=== PATIENT | male | born 1935 | race Caucasian/White ===

== ENCOUNTER 2016-07-28 21:06 | Inpatient (IN) | payer OTHER ==
[~2016-07-28] VITALS: Ht 162.6 cm; Wt 62.5 kg
[2016-07-28] MEDS ORDERED: ASPIRIN 81 MG TABLET CHEW PO ONE (21:30)
[2016-07-28] MEDS ORDERED: ASPIRIN 81 MG TABLET CHEW ONE (21:43)
[2016-07-28 22:08] LABS: ASPARTATE AMINO TRANSFERASE 25 U/L (15-37); BLOOD UREA NITROGEN 22 mg/dL (7-18)
[2016-07-28] MEDS ORDERED: IPRA15SP NAS (22:13)
[2016-07-28] MEDS ORDERED: OXYC-223 PO (22:19)
[2016-07-28] MEDS ORDERED: TIOT18CA INH (22:19)
[2016-07-28] MEDS ORDERED: POTA20TA89 PO (22:19)
[2016-07-28] MEDS ORDERED: ALBU8.5H3 INH (22:19)
[2016-07-28] MEDS ORDERED: FURO20TA3 PO (22:19)
[2016-07-28] MEDS ORDERED: TAMS0.4C2 PO (22:19)
[2016-07-28] MEDS ORDERED: FERR324T5 PO (22:19)
[2016-07-28] MEDS ORDERED: TRAZ50TA18 PO (22:19)
[2016-07-28] MEDS ORDERED: ASPI-515 PO (22:19)
[2016-07-28] MEDS ORDERED: ASCO500C2 PO (22:19)
[2016-07-28 22:24] LABS: IS PT STATUS REG ER OR PRE ER? YES
[2016-07-28 22:55] LABS: PATH.CAST-FLAG NOT PRESENT; SPERM-FLAG NOT PRESENT; SRC-FLAG NOT PRESENT; XTAL-FLAG NOT PRESENT; YLC-FLAG NOT PRESENT
[2016-07-29] MEDS ORDERED: ONDANSETRON 2MG/ML, 2ML IVPush PRN ×2 (00:30→01:00)
[2016-07-29] MEDS: HEPARIN 5,000 UNITS/ML, 1ML SQ SCH ×3 (01:00→17:35)
[2016-07-29] MEDS ORDERED: NITROGLYCERIN 0.4 MG BOTTLE (25 TABS) SL PRN (01:00)
[2016-07-29] MEDS ORDERED: POLYETHYLENE GLYCOL 17 GM PACKET PO PRN (01:00)
[2016-07-29] MEDS ORDERED: BISACODYL 10 MG SUPP PR PRN (01:00)
[2016-07-29] MEDS ORDERED: GUAIFENESIN/DM 200-20MG, 10ML UDC PO PRN (01:00)
[2016-07-29] MEDS ORDERED: MORPHINE SULFATE 4 MG/ML, 1ML ONE (02:59)
[2016-07-29 03:48] VITALS: BP 135/73
[2016-07-29 04:44] LABS: ASPARTATE AMINO TRANSFERASE 22 U/L (15-37); BLOOD UREA NITROGEN 19 mg/dL (7-18)
[2016-07-29 04:45] LABS: IS PT STATUS REG ER OR PRE ER? NO
[2016-07-29 06:31] VITALS: BP 115/63
[2016-07-29] MEDS: OXYcodone/APAP 7.5/325MG TABLET PO SCH (08:10)
[2016-07-29] MEDS: SENNA/DOCUSATE TABLET PO SCH (08:11)
[2016-07-29] MEDS: ASCORBIC ACID 500 MG TABLET PO SCH (08:11)
[2016-07-29] MEDS: POTASSIUM CHLORIDE 20 MEQ TAB.ER.PRT PO SCH (08:11)
[2016-07-29] MEDS: SODIUM CHLORIDE FLUSH 3ML SYRINGE IVF SCH ×2 (08:11→20:19)
[2016-07-29] MEDS: ASPIRIN 81 MG TABLET EC PO SCH (08:11)
[2016-07-29] MEDS: IPRATROPIUM BROMIDE NAS SCH ×2 (08:11→20:19)
[2016-07-29] MEDS: TAMSULOSIN 0.4 MG CAP.ER.24H PO SCH (08:11)
[2016-07-29] MEDS: TEMPLATE NON-FORMULARY MED. (Albuterol Sulfate (Proair Hfa) 1 PUFF) INH SCH ×2 (08:11→20:19)
[2016-07-29] MEDS: FUROSEMIDE 20 MG TABLET PO SCH (08:11)
[2016-07-29] MEDS ORDERED: ALBUTEROL SULFATE 2.5 MG/3 ML NPPB SCH (09:00)
[2016-07-29] MEDS ORDERED: IPRATROPIUM 0.5 MG/2.5 ML INHA HHN SCH (09:00)
[2016-07-29] MEDS: ALBUTEROL/IPRATROPIUM 2.5MG/0.5MG, 3 ML NPPB SCH ×2 (09:00→20:30)
[2016-07-29] MEDS ORDERED: FERROUS SULFATE 325 MG TABLET PO SCH (09:00)
[2016-07-29 10:24] LABS: IS PT STATUS REG ER OR PRE ER? NO
[2016-07-29] MEDS: GUAIFENESIN ER 600 MG TABLET PO SCH ×2 (11:46→20:19)
[2016-07-29 13:10] VITALS: BP 109/57
[2016-07-29] MEDS: ACETAMINOPHEN 325 MG TABLET PO PRN (14:19)
[2016-07-29] MEDS: FERROUS SULFATE 325 MG TABLET PO SCH (17:36)
[2016-07-29 20:00] VITALS: BP 95/57
[2016-07-29] MEDS: TRAZODONE 50MG TABLET PO SCH (20:20)
[2016-07-30] MEDS: HEPARIN 5,000 UNITS/ML, 1ML SQ SCH ×2 (00:48→09:43)
[2016-07-30 00:53] VITALS: BP 103/52
[2016-07-30 06:29] LABS: BLOOD UREA NITROGEN 23 mg/dL (7-18)
[2016-07-30 07:30] VITALS: BP 122/63
[2016-07-30] MEDS: FUROSEMIDE 20 MG TABLET PO SCH (07:57)
[2016-07-30] MEDS: GUAIFENESIN ER 600 MG TABLET PO SCH ×2 (07:57→20:43)
[2016-07-30] MEDS: ASCORBIC ACID 500 MG TABLET PO SCH (07:57)
[2016-07-30] MEDS: SENNA/DOCUSATE TABLET PO SCH (07:57)
[2016-07-30] MEDS: POTASSIUM CHLORIDE 20 MEQ TAB.ER.PRT PO SCH (07:57)
[2016-07-30] MEDS: TAMSULOSIN 0.4 MG CAP.ER.24H PO SCH (07:57)
[2016-07-30] MEDS: ASPIRIN 81 MG TABLET EC PO SCH (07:58)
[2016-07-30] MEDS: TEMPLATE NON-FORMULARY MED. (Albuterol Sulfate (Proair Hfa) 1 PUFF) INH SCH ×2 (07:58→21:00)
[2016-07-30] MEDS: TRAZODONE 50MG TABLET PO SCH (07:58)
[2016-07-30] MEDS: FERROUS SULFATE 325 MG TABLET PO SCH ×2 (07:58→18:21)
[2016-07-30] MEDS: OXYcodone/APAP 7.5/325MG TABLET PO SCH (07:59)
[2016-07-30] MEDS: IPRATROPIUM BROMIDE NAS SCH ×2 (07:59→21:00)
[2016-07-30] MEDS: SODIUM CHLORIDE FLUSH 3ML SYRINGE IVF SCH ×2 (07:59→21:00)
[2016-07-30 08:49] VITALS: BP 94/52
[2016-07-30] MEDS: ALBUTEROL/IPRATROPIUM 2.5MG/0.5MG, 3 ML NPPB SCH ×2 (09:00→22:15)
[2016-07-30] MEDS ORDERED: ENOXAPARIN 40 MG/0.4 ML SQ SCH (12:30)
[2016-07-30 14:13] VITALS: BP 92/43
[2016-07-30] MEDS: DOXYCYCLINE 100MG TABLET PO SCH ×2 (14:35→20:43)
[2016-07-30 18:41] VITALS: BP 136/66
[2016-07-31 01:27] VITALS: BP 122/82
[2016-07-31] MEDS: ALBUTEROL/IPRATROPIUM 2.5MG/0.5MG, 3 ML NPPB SCH ×2 (07:21→18:53)
[2016-07-31 07:55] VITALS: BP 108/65
[2016-07-31] MEDS: TEMPLATE NON-FORMULARY MED. (Albuterol Sulfate (Proair Hfa) 1 PUFF) INH SCH ×2 (09:00→21:00)
[2016-07-31] MEDS: SODIUM CHLORIDE FLUSH 3ML SYRINGE IVF SCH ×2 (09:00→21:00)
[2016-07-31] MEDS: IPRATROPIUM BROMIDE NAS SCH ×2 (09:00→21:00)
[2016-07-31] MEDS: GUAIFENESIN ER 600 MG TABLET PO SCH ×2 (10:24→21:57)
[2016-07-31] MEDS: OXYcodone/APAP 7.5/325MG TABLET PO SCH (10:24)
[2016-07-31] MEDS: ASPIRIN 81 MG TABLET EC PO SCH (10:24)
[2016-07-31] MEDS: POTASSIUM CHLORIDE 20 MEQ TAB.ER.PRT PO SCH (10:24)
[2016-07-31] MEDS: TAMSULOSIN 0.4 MG CAP.ER.24H PO SCH (10:24)
[2016-07-31] MEDS: FUROSEMIDE 20 MG TABLET PO SCH (10:24)
[2016-07-31] MEDS: FERROUS SULFATE 325 MG TABLET PO SCH ×2 (10:24→17:24)
[2016-07-31] MEDS: TRAZODONE 50MG TABLET PO SCH (10:24)
[2016-07-31] MEDS: ASCORBIC ACID 500 MG TABLET PO SCH (10:25)
[2016-07-31] MEDS: DOXYCYCLINE 100MG TABLET PO SCH ×2 (10:25→21:57)
[2016-07-31] MEDS: SENNA/DOCUSATE TABLET PO SCH (10:25)
[2016-07-31 14:21] VITALS: BP 104/64
[2016-07-31 18:31] VITALS: BP 130/70
[2016-07-31] MEDS: ACETAMINOPHEN 325 MG TABLET PO PRN (19:59)
[2016-08-01 00:46] VITALS: BP 102/65
[2016-08-01 06:32] VITALS: BP 130/73
[2016-08-01] MEDS: ASPIRIN 81 MG TABLET EC PO SCH (08:43)
[2016-08-01] MEDS: OXYcodone/APAP 7.5/325MG TABLET PO SCH (08:43)
[2016-08-01] MEDS: POTASSIUM CHLORIDE 20 MEQ TAB.ER.PRT PO SCH (08:43)
[2016-08-01] MEDS: TAMSULOSIN 0.4 MG CAP.ER.24H PO SCH (08:43)
[2016-08-01] MEDS: TRAZODONE 50MG TABLET PO SCH (08:43)
[2016-08-01] MEDS: GUAIFENESIN ER 600 MG TABLET PO SCH ×2 (08:43→21:52)
[2016-08-01] MEDS: FERROUS SULFATE 325 MG TABLET PO SCH ×2 (08:43→18:07)
[2016-08-01] MEDS: FUROSEMIDE 20 MG TABLET PO SCH (08:43)
[2016-08-01] MEDS: ASCORBIC ACID 500 MG TABLET PO SCH (08:44)
[2016-08-01] MEDS: DOXYCYCLINE 100MG TABLET PO SCH ×2 (08:44→21:52)
[2016-08-01] MEDS: SENNA/DOCUSATE TABLET PO SCH (08:44)
[2016-08-01] MEDS: SODIUM CHLORIDE FLUSH 3ML SYRINGE IVF SCH ×2 (08:47→21:00)
[2016-08-01] MEDS: TEMPLATE NON-FORMULARY MED. (Albuterol Sulfate (Proair Hfa) 1 PUFF) INH SCH ×2 (08:47→21:00)
[2016-08-01] MEDS: IPRATROPIUM BROMIDE NAS SCH ×2 (08:48→21:00)
[2016-08-01] MEDS: ALBUTEROL/IPRATROPIUM 2.5MG/0.5MG, 3 ML NPPB SCH ×2 (09:23→19:10)
[2016-08-01 12:02] VITALS: BP 97/63
[2016-08-01] MEDS: ENOXAPARIN 40 MG/0.4 ML SQ SCH (12:42)
[2016-08-01 18:31] VITALS: BP 104/65
[2016-08-01] MEDS: ACETAMINOPHEN 325 MG TABLET PO PRN (22:01)
[2016-08-02 01:54] VITALS: BP 111/57
[2016-08-02 06:40] VITALS: BP 120/71
[2016-08-02] MEDS: IPRATROPIUM BROMIDE NAS SCH ×2 (09:00→21:00)
[2016-08-02] MEDS: ALBUTEROL/IPRATROPIUM 2.5MG/0.5MG, 3 ML NPPB SCH ×2 (09:00→20:55)
[2016-08-02] MEDS: TEMPLATE NON-FORMULARY MED. (Albuterol Sulfate (Proair Hfa) 1 PUFF) INH SCH ×2 (09:00→21:00)
[2016-08-02] MEDS: SODIUM CHLORIDE FLUSH 3ML SYRINGE IVF SCH ×2 (09:00→21:00)
[2016-08-02] MEDS: TRAZODONE 50MG TABLET PO SCH (10:04)
[2016-08-02] MEDS: ASPIRIN 81 MG TABLET EC PO SCH (10:04)
[2016-08-02] MEDS: FERROUS SULFATE 325 MG TABLET PO SCH ×2 (10:04→17:56)
[2016-08-02] MEDS: OXYcodone/APAP 7.5/325MG TABLET PO SCH (10:05)
[2016-08-02] MEDS: DOXYCYCLINE 100MG TABLET PO SCH ×2 (10:05→21:15)
[2016-08-02] MEDS: POTASSIUM CHLORIDE 20 MEQ TAB.ER.PRT PO SCH (10:05)
[2016-08-02] MEDS: GUAIFENESIN ER 600 MG TABLET PO SCH (10:05)
[2016-08-02] MEDS: FUROSEMIDE 20 MG TABLET PO SCH (10:05)
[2016-08-02] MEDS: TAMSULOSIN 0.4 MG CAP.ER.24H PO SCH (10:05)
[2016-08-02] MEDS: ASCORBIC ACID 500 MG TABLET PO SCH (10:05)
[2016-08-02] MEDS: SENNA/DOCUSATE TABLET PO SCH (10:05)
[2016-08-02] MEDS: ENOXAPARIN 40 MG/0.4 ML SQ SCH (11:21)
[2016-08-02 13:30] VITALS: BP 100/61
[2016-08-02 18:59] VITALS: BP 130/73
[2016-08-03 00:27] VITALS: BP 98/55
[2016-08-03] MEDS ORDERED: SENNA/DOCUSATE TABLET PO SCH (09:00)
[2016-08-03] MEDS: IPRATROPIUM BROMIDE NAS SCH (09:00)
[2016-08-03] MEDS: SODIUM CHLORIDE FLUSH 3ML SYRINGE IVF SCH (09:00)
[2016-08-03] MEDS: TEMPLATE NON-FORMULARY MED. (Albuterol Sulfate (Proair Hfa) 1 PUFF) INH SCH (09:00)
[2016-08-03 09:22] VITALS: BP 120/66
[2016-08-03] MEDS: ALBUTEROL/IPRATROPIUM 2.5MG/0.5MG, 3 ML NPPB SCH ×2 (09:25→21:00)
[2016-08-03] MEDS: ASCORBIC ACID 500 MG TABLET PO SCH (09:42)
[2016-08-03] MEDS: ASPIRIN 81 MG TABLET EC PO SCH (09:43)
[2016-08-03] MEDS: DOXYCYCLINE 100MG TABLET PO SCH ×2 (09:43→20:32)
[2016-08-03] MEDS: POTASSIUM CHLORIDE 20 MEQ TAB.ER.PRT PO SCH (09:43)
[2016-08-03] MEDS: TAMSULOSIN 0.4 MG CAP.ER.24H PO SCH (09:43)
[2016-08-03] MEDS: FUROSEMIDE 20 MG TABLET PO SCH (09:43)
[2016-08-03] MEDS: TRAZODONE 50MG TABLET PO SCH (09:44)
[2016-08-03] MEDS: FERROUS SULFATE 325 MG TABLET PO SCH ×2 (10:00→16:01)
[2016-08-03] MEDS: OXYcodone/APAP 7.5/325MG TABLET PO SCH (10:00)
[2016-08-03] MEDS ORDERED: ENOXAPARIN 40 MG/0.4 ML SQ SCH (11:00)
[2016-08-03 14:53] VITALS: BP 100/65
[2016-08-03] MEDS ORDERED: DOXY100T PO (15:51)
[2016-08-03] MEDS ORDERED: FERR325T20 PO (15:51)
[2016-08-03 16:20] VITALS: BP 105/64
== END 2016-08-03 21:25 | disposition home or self-care (01) | DRG 191 ==
LOC: ED 23:59 → EDIP 07-29 00:06 → 5SO 07-29 03:18 → 3NE 07-30 18:37
PROVIDERS: ADMIT Internal Medicine; ATTEND Internal Medicine
DX: J44.0 Chronic obstructive pulmonary disease with (acute) lower respiratory infection (principal); E87.1 Hypo-osmolality and hyponatremia; E44.0 Moderate protein-calorie malnutrition; I45.2 Bifascicular block; J20.9 Acute bronchitis, unspecified; J98.8 Other specified respiratory disorders; J44.1 Chronic obstructive pulmonary disease with (acute) exacerbation; D63.8 Anemia in other chronic diseases classified elsewhere; I25.10 Atherosclerotic heart disease of native coronary artery without angina pectoris; D50.9 Iron deficiency anemia, unspecified; I10 Essential (primary) hypertension; I45.10 Unspecified right bundle-branch block; M06.9 Rheumatoid arthritis, unspecified; N40.0 Benign prostatic hyperplasia without lower urinary tract symptoms; R32 Unspecified urinary incontinence; Z79.82 Long term (current) use of aspirin; Z82.49 Family history of ischemic heart disease and other diseases of the circulatory system; Z87.891 Personal history of nicotine dependence; Z95.5 Presence of coronary angioplasty implant and graft; Z68.27 Body mass index [BMI] 27.0-27.9, adult; Z90.89 Acquired absence of other organs; J32.9 Chronic sinusitis, unspecified
CPT/HCPCS: 36415; 70450; 71010; 80048; 80053; 81001; 81003; 82728; 83540; 83550; 83880; 84145; 84484; 85025; 87070; 87086; 87205; 93005; 93306; 93970; 94640; 99285; J1644; J1650; J7620

== ENCOUNTER 2016-09-23 16:27 | Inpatient (IN) | payer OTHER ==
[~2016-09-23] VITALS: Ht 175.3 cm; Wt 42.5 kg
[~2016-09-23 16:27] MED LIST: ALBU8.5H8 INH; ASCO500C2 PO; ASPI-515 PO; DOXY100T PO; FERR324T5 PO; FERR325T18 PO; FURO20TA3 PO; IPRA15SP NAS; OXYC-306 PO; POTA20TA89 PO; TAMS0.4C2 PO; TIOT18CA INH; TRAZ50TA18 PO
[2016-09-23] MEDS ORDERED: SODIUM CHLORIDE 0.9% 1,000 ML IV ONE (17:02)
[2016-09-23] MEDS ORDERED: MORPHINE SULFATE 4 MG/ML, 1ML ONE (17:08)
[2016-09-23] MEDS ORDERED: SODIUM CHLORIDE FLUSH 10ML SYR IVF ONE (17:30)
[2016-09-23] MEDS ORDERED: MORPHINE SULFATE 4 MG/ML, 1ML IVPush PRN (17:30)
[2016-09-23 18:01] LABS: HEMATOCRIT 29.1 % (39.2-51.8); HEMOGLOBIN 9.3 g/dL (13.7-18.0); WHITE BLOOD COUNT 8.6 x10^3/uL (3.4-10)
[2016-09-23 18:12] LABS: BLOOD UREA NITROGEN 25 mg/dL (7-18)
[2016-09-23] MEDS ORDERED: ONDANSETRON 2MG/ML, 2ML IVPush PRN ×2 (18:30→21:00)
[2016-09-23] MEDS ORDERED: ACETAMINOPHEN 325 MG TABLET PO PRN ×2 (18:30→21:00)
[2016-09-23] MEDS ORDERED: NS + 20MEQ KCL 1,000 ML IV SCH (18:30)
[2016-09-23] MEDS ORDERED: DOCUSATE 100 MG CAPSULE PO PRN (18:30)
[2016-09-23] MEDS ORDERED: morphine SULFATE 10 MG/ML, 1ML IVPush PRN (18:30)
[2016-09-23] MEDS ORDERED: POLYETHYLENE GLYCOL 17 GM PACKET PO PRN (18:30)
[2016-09-23] MEDS ORDERED: FENTANYL PF 100 MCG/2ML ONE ×3 (19:55→21:09)
[2016-09-23] MEDS ORDERED: MIDAZOLAM 1 MG/ML, 2ML ONE (19:56)
[2016-09-23] MEDS ORDERED: DEXAMETHASONE 4 MG/ML, 1ML ONE (20:08)
[2016-09-23] MEDS ORDERED: SUCCINYLCHOLINE 20 MG/ML, 10ML ONE (20:08)
[2016-09-23] MEDS ORDERED: PROPOFOL 10 MG/ML, 20ML ONE (20:08)
[2016-09-23] MEDS ORDERED: ONDANSETRON 2MG/ML, 2ML ONE (20:08)
[2016-09-23] MEDS ORDERED: ROCURONIUM 10 MG/ML ONE (20:08)
[2016-09-23] MEDS ORDERED: GLYCOPYRROLATE 0.2MG/1ML ONE (20:08)
[2016-09-23] MEDS ORDERED: CEFAZOLIN 1,000 MG ONE (20:08)
[2016-09-23] MEDS ORDERED: NEOSTIGMINE 1 MG/ML, 10ML ONE (20:08)
[2016-09-23] MEDS ORDERED: HYDROmorphone 1 MG/ML, 1ML IV PRN (21:00)
[2016-09-23] MEDS ORDERED: EPHEDRINE 50 MG/ML, 1ML IVPush PRN (21:00)
[2016-09-23] MEDS ORDERED: hydrALAzine 20 MG/ML, 1ML IV PRN (21:00)
[2016-09-23] MEDS ORDERED: LABETALOL 5MG/ML, 20ML IV PRN (21:00)
[2016-09-23] MEDS ORDERED: PROMETHAZINE 25 MG/ML, 1ML IV PRN (21:00)
[2016-09-23] MEDS ORDERED: OXYcodone 5 MG/5 ML ORAL.SOL UDC PO PRN (21:00)
[2016-09-23] MEDS ORDERED: HYDROcodone/APAP 7.5-325MG/15ML UDC PO PRN (21:00)
[2016-09-23] MEDS ORDERED: METOPROLOL 1 MG/ML, 5ML IV PRN (21:00)
[2016-09-23] MEDS ORDERED: ALBUTEROL/IPRATROPIUM 2.5MG/0.5MG, 3 ML NPPB PRN (21:00)
[2016-09-23] MEDS ORDERED: ALBUTEROL SULFATE 2.5 MG/3 ML NPPB PRN (21:00)
[2016-09-23] MEDS ORDERED: FENTANYL PF 100 MCG/2ML IV PRN (21:00)
[2016-09-23] MEDS ORDERED: ACETAMINOPHEN 650 MG/20.3 ML UDC ONE (21:09)
[2016-09-23] MEDS ORDERED: OXYcodone 5 MG/5 ML ORAL.SOL UDC ONE (21:10)
[2016-09-23] MEDS ORDERED: ENOXAPARIN 40 MG/0.4 ML SQ SCH (21:30)
[2016-09-24 01:44] VITALS: BP 129/79
[2016-09-24] MEDS ORDERED: IPRATROPIUM 0.5 MG/2.5 ML INHA NPPB SCH (03:30)
[2016-09-24 03:32] VITALS: BP 111/66
[2016-09-24] MEDS: CEFAZOLIN PMX 1GM/50ML 50 ML IVPB SCH ×2 (04:20→11:27)
[2016-09-24 05:38] LABS: HEMATOCRIT 25.9 % (39.2-51.8); HEMOGLOBIN 8.3 g/dL (13.7-18.0); WHITE BLOOD COUNT 8.1 x10^3/uL (3.4-10)
[2016-09-24] MEDS ORDERED: ENOXAPARIN 40 MG/0.4 ML SQ SCH (06:00)
[2016-09-24 06:08] LABS: BLOOD UREA NITROGEN 21 mg/dL (7-18)
[2016-09-24 08:30] VITALS: BP 115/71
[2016-09-24] MEDS: FERROUS SULFATE 325 MG TABLET PO SCH ×2 (08:32→16:41)
[2016-09-24] MEDS: SENNA/DOCUSATE TABLET PO SCH (08:32)
[2016-09-24] MEDS: TAMSULOSIN 0.4 MG CAP.ER.24H PO SCH (08:32)
[2016-09-24] MEDS: POTASSIUM CHLORIDE 20 MEQ TAB.ER.PRT PO SCH (08:32)
[2016-09-24] MEDS: HYDROcodone/APAP 5/325 TABLET PO PRN ×2 (08:34→14:25)
[2016-09-24] MEDS: TEMPLATE NON-FORMULARY MED. (Albuterol Sulfate (Proair Hfa) 1 PUFF) INH SCH ×2 (09:00)
[2016-09-24] MEDS: IPRATROPIUM BROMIDE NAS SCH ×2 (09:00)
[2016-09-24] MEDS ORDERED: IPRATROPIUM 0.5 MG/2.5 ML INHA HHN SCH (09:00)
[2016-09-24] MEDS: ENOXAPARIN 30 MG/0.3 ML SQ SCH ×2 (11:27→11:30)
[2016-09-24 14:04] VITALS: BP 114/59
[2016-09-24] MEDS: IPRATROPIUM 0.5 MG/2.5 ML INHA NPPB SCH ×2 (15:52→21:30)
[2016-09-24 19:04] VITALS: BP 129/61
[2016-09-24] MEDS ORDERED: ALBUTEROL SULFATE 2.5 MG/3 ML NPPB SCH (19:47)
[2016-09-24] MEDS: TRAZODONE 50MG TABLET PO SCH (20:41)
[2016-09-24] MEDS ORDERED: ALBUTEROL/IPRATROPIUM 2.5MG/0.5MG, 3 ML NPPB PRN (22:00)
[2016-09-25] VITALS (11 sets, daily range): BP systolic 99–136; BP diastolic 54–74
[2016-09-25 05:39] LABS: HEMOGLOBIN 7.5 g/dL (13.7-18.0); WHITE BLOOD COUNT 9.3 x10^3/uL (3.4-10)
[2016-09-25] MEDS ORDERED: ENOXAPARIN 30 MG/0.3 ML SQ SCH ×2 (06:00)
[2016-09-25] MEDS: HYDROcodone/APAP 5/325 TABLET PO PRN ×3 (06:17→18:37)
[2016-09-25] MEDS ORDERED: ALBUTEROL/IPRATROPIUM 2.5MG/0.5MG, 3 ML NPPB SCH (07:00)
[2016-09-25] MEDS: SENNA/DOCUSATE TABLET PO SCH (08:03)
[2016-09-25] MEDS: TAMSULOSIN 0.4 MG CAP.ER.24H PO SCH (08:04)
[2016-09-25] MEDS: TRAZODONE 50MG TABLET PO SCH (08:04)
[2016-09-25] MEDS: FERROUS SULFATE 325 MG TABLET PO SCH ×2 (08:04→17:41)
[2016-09-25] MEDS: POTASSIUM CHLORIDE 20 MEQ TAB.ER.PRT PO SCH (08:04)
[2016-09-25] MEDS ORDERED: DIPHENHYDRAMINE 50 MG/ML, 1ML IVPush ONE (10:30)
[2016-09-25] MEDS ORDERED: FUROSEMIDE 20 MG/2 ML IVPush ONE (10:30)
[2016-09-25] MEDS ORDERED: ONDANSETRON 2MG/ML, 2ML IVPush PRN (14:30)
[2016-09-25] MEDS ORDERED: morphine SULFATE 10 MG/ML, 1ML IVPush PRN (14:30)
[2016-09-25] MEDS ORDERED: ACETAMINOPHEN 325 MG TABLET PO PRN (14:30)
[2016-09-25] MEDS: ALBUTEROL/IPRATROPIUM 2.5MG/0.5MG, 3 ML NPPB SCH ×2 (14:47→20:00)
[2016-09-26 02:07] VITALS: BP_SYST 140; BP_SYST 94; BP_DIAS 61; BP_DIAS 95
[2016-09-26 04:57] LABS: BLOOD UREA NITROGEN 20 mg/dL (7-18)
[2016-09-26 05:07] LABS: HEMATOCRIT 27.2 % (39.2-51.8); HEMOGLOBIN 8.9 g/dL (13.7-18.0); WHITE BLOOD COUNT 9.2 x10^3/uL (3.4-10)
[2016-09-26] MEDS: ENOXAPARIN 40 MG/0.4 ML SQ SCH (05:36)
[2016-09-26 07:22] VITALS: BP 109/60
[2016-09-26] MEDS: FERROUS SULFATE 325 MG TABLET PO SCH ×2 (07:55→17:06)
[2016-09-26] MEDS: HYDROcodone/APAP 5/325 TABLET PO PRN ×3 (07:55→19:50)
[2016-09-26] MEDS: POTASSIUM CHLORIDE 20 MEQ TAB.ER.PRT PO SCH (08:04)
[2016-09-26] MEDS: SENNA/DOCUSATE TABLET PO SCH (08:04)
[2016-09-26] MEDS: TAMSULOSIN 0.4 MG CAP.ER.24H PO SCH (08:04)
[2016-09-26] MEDS: TRAZODONE 50MG TABLET PO SCH (08:04)
[2016-09-26] MEDS: POLYETHYLENE GLYCOL 17 GM PACKET PO PRN (08:10)
[2016-09-26] MEDS: DOCUSATE 100 MG CAPSULE PO PRN ×2 (08:10→19:50)
[2016-09-26] MEDS: ALBUTEROL/IPRATROPIUM 2.5MG/0.5MG, 3 ML NPPB SCH ×2 (08:20→21:00)
[2016-09-26 13:24] VITALS: BP 111/73
[2016-09-26 19:35] VITALS: BP 106/64
[2016-09-27 03:25] VITALS: BP 107/64
[2016-09-27] MEDS: ENOXAPARIN 40 MG/0.4 ML SQ SCH (05:40)
[2016-09-27 07:55] VITALS: BP 103/67
[2016-09-27] MEDS: SENNA/DOCUSATE TABLET PO SCH (08:17)
[2016-09-27] MEDS: FERROUS SULFATE 325 MG TABLET PO SCH ×2 (08:17→16:43)
[2016-09-27] MEDS: POTASSIUM CHLORIDE 20 MEQ TAB.ER.PRT PO SCH (08:17)
[2016-09-27] MEDS: TAMSULOSIN 0.4 MG CAP.ER.24H PO SCH (08:17)
[2016-09-27] MEDS: TRAZODONE 50MG TABLET PO SCH (08:17)
[2016-09-27] MEDS: DOCUSATE 100 MG CAPSULE PO PRN (08:47)
[2016-09-27] MEDS: POLYETHYLENE GLYCOL 17 GM PACKET PO PRN (08:47)
[2016-09-27] MEDS: ALBUTEROL/IPRATROPIUM 2.5MG/0.5MG, 3 ML NPPB SCH ×2 (09:04→19:44)
[2016-09-27 13:02] VITALS: BP 111/67
[2016-09-27] MEDS ORDERED: BISACODYL 10 MG SUPP PR PRN (13:30)
[2016-09-27] MEDS: HYDROcodone/APAP 5/325 TABLET PO PRN ×2 (13:47→19:28)
[2016-09-27] MEDS ORDERED: ACET650S21 PO (17:21)
[2016-09-27] MEDS ORDERED: ALBU2.5V NEB (17:27)
[2016-09-27] MEDS ORDERED: ENOX40SY4 SQ (17:29)
[2016-09-27] MEDS ORDERED: SENN1TAB7 PO (17:31)
[2016-09-27] MEDS ORDERED: BISA10SU2 PR (17:32)
[2016-09-27] MEDS ORDERED: HYDR-3237 PO (17:35)
[2016-09-27] MEDS ORDERED: DOCU-131 PO (17:35)
[2016-09-27] MEDS ORDERED: POLY17PO5 PO (17:36)
[2016-09-27 19:30] VITALS: BP 118/76
[2016-09-28] MEDS: HYDROcodone/APAP 5/325 TABLET PO PRN (01:39)
[2016-09-28 02:10] VITALS: BP 97/62
[2016-09-28] MEDS: ENOXAPARIN 40 MG/0.4 ML SQ SCH (06:02)
[2016-09-28] MEDS: TRAZODONE 50MG TABLET PO SCH (08:06)
[2016-09-28] MEDS: SENNA/DOCUSATE TABLET PO SCH (08:07)
[2016-09-28] MEDS: TAMSULOSIN 0.4 MG CAP.ER.24H PO SCH (08:07)
[2016-09-28] MEDS: FERROUS SULFATE 325 MG TABLET PO SCH (08:07)
[2016-09-28] MEDS: POTASSIUM CHLORIDE 20 MEQ TAB.ER.PRT PO SCH (08:07)
[2016-09-28 08:13] VITALS: BP 111/62
[2016-09-28] MEDS: ALBUTEROL/IPRATROPIUM 2.5MG/0.5MG, 3 ML NPPB SCH (09:00)
[2016-09-28 14:12] VITALS: BP 116/69
[2016-09-28] MEDS ORDERED: PNEUMOCOCCAL 23 VACCINE IM-VACC ONE (15:30)
[2016-09-28 15:51] VITALS: BP 109/68
== END 2016-09-28 16:20 | DRG 480 ==
LOC: ED 18:04 → EDIP 18:05 → ED 18:14 → SUATTDRO 18:21 → 4NOR 22:15
PROVIDERS: ADMIT Family Medicine; ATTEND Family Medicine
PROC: 0QS636Z Reposition Right Upper Femur with Intramedullary Internal Fixation Device, Percutaneous Approach (ICD-10-PCS; principal; 2016-09-23 20:30)
PROC: 30233N1 Transfusion of Nonautologous Red Blood Cells into Peripheral Vein, Percutaneous Approach (ICD-10-PCS; 2016-09-25)
DX: S72.141A Displaced intertrochanteric fracture of right femur, initial encounter for closed fracture (principal); E43 Unspecified severe protein-calorie malnutrition; J44.9 Chronic obstructive pulmonary disease, unspecified; D63.8 Anemia in other chronic diseases classified elsewhere; D62 Acute posthemorrhagic anemia; Z68.1 Body mass index [BMI] 19.9 or less, adult; I10 Essential (primary) hypertension; I25.10 Atherosclerotic heart disease of native coronary artery without angina pectoris; Z96.611 Presence of right artificial shoulder joint; M06.9 Rheumatoid arthritis, unspecified; W01.0XXA Fall on same level from slipping, tripping and stumbling without subsequent striking against object, initial encounter; Z82.49 Family history of ischemic heart disease and other diseases of the circulatory system; Z95.5 Presence of coronary angioplasty implant and graft; Z88.6 Allergy status to analgesic agent; Z23 Encounter for immunization; Y93.89 Activity, other specified; Y92.098 Other place in other non-institutional residence as the place of occurrence of the external cause; Y99.8 Other external cause status
CPT/HCPCS: 36415; 71010; 76001; 80048; 81003; 82040; 85025; 85610; 86850; 86900; 86923; 93005; 94640; 96374; C1713; J0690; J1100; J1650; J2250; J2405; J2704; J2710; J3010; J3480; J3490; J7620; J7644; J0330; J1200; J1940; P9016